=== PATIENT | female | born 1990 | race Caucasian/White ===

== ENCOUNTER 2018-08-27 15:56 | Emergency (ER) | payer MEDICAID, OTHER ==
[2018-08-27 16:05] VITALS: BP 121/73
--- NOTE | 2018-08-27 16:09 | EDPHY ---
H & P Stated Complaint: hit in head with surge protector Time Seen by Provider: 08/27/18 16:09 - Personal History LMP (Females 10-55): Now Current Tetanus/Diphtheria Vaccine: Unsure Current Tetanus Diphtheria and Acellular Pertussis (TDAP): Unsure - Medical/Surgical History Hx Asthma: No Hx Chronic Respiratory Disease: No Hx Diabetes: No Hx Cardiac Disease: No Hx Renal Disease: No Hx Cirrhosis: No Hx Alcoholism: No Hx HIV/AIDS: No Hx Splenectomy or Spleen Trauma: No Other PMH: ORTHOPEDIC ISSUES, DISLOCATED RIB, MIGRAINES - Social History Smoking Status: Never smoked Constitutional: Initial Vital Signs Temperature (C) 37.1 C 08/27/18 16:02 Heart Rate 73 08/27/18 16:02 Respiratory Rate 16 08/27/18 16:02 Blood Pressure 121/73 H 08/27/18 16:02 O2 Sat (%) 98 08/27/18 16:02 O2 Delivery Mode Room Air Allergies/Adverse Reactions: No Known Allergies Allergy (Unverified 08/27/18 16:02) Home Medications: Medication Instructions Recorded NK [No Known Home Meds] 02/11/15 Medical Decision Making ED Course/Re-evaluation: CHIEF COMPLAINT: Struck in head with surge protector HISTORY OF PRESENT ILLNESS: The patient is a 28 y/o female arriving with her friend for a workman's comp injury after she was accidentally struck on the left side of her head with a surge protector. She did not lose consciousness and denies midline neck pain, weakness, paresthesias. She has mild tenderness at the site. She is generally healthy. She went to urgent care and was referred directly to the ED for evaluation. REVIEW OF SYSTEMS: A comprehensive 10 system review of systems is otherwise negative aside from elements mentioned in the history of present illness and medical decision making. PHYSICAL EXAM: HR, BP, O2 Sat, RR. Temp noted General Appearance: Alert, well hydrated, appropriate, and non-toxic appearing. Head: Atraumatic without scalp tenderness or obvious injury Eyes: Pupils equal, round, reactive to light and accommodation, EOMI, no trauma , no injection. Nose: Atraumatic, no rhinorrhea, clear. Throat: Mucus membranes moist. Neck: Supple, nontender, no lymphadenopathy. Respiratory: No retractions, no distress, no wheezes, and no accessory muscle use. Lungs are clear to auscultation bilaterally. Cardiovascular: Regular rate and rhythm, no murmurs, rubs, or gallops. Good capillary refill all extremities. Gastrointestinal: Abdomen is soft, nontender, non-distended, no masses, no rebound, no guarding, no peritoneal signs. Musculoskeletal: Normal active ROM of all extremities, atraumatic. Neurological: Alert, appropriate, and interactive. The patient has non-focal cranial nerves, motor, sensory, and cerebellar exam. Skin: No rashes, good turgor, no nodules on palpation. Past medical history: Migraines Past surgical history: Noncontributory Family history: Noncontributory Social history: Friend at bedside. Lives in [place]. Employed. DIFFERENTIAL DIAGNOSIS: The differential diagnosis for the patient's head injury included but was not limited to concussion, skull fracture, intra- parenchymal contusion, subarachnoid, subdural and epidural hematoma. MEDICAL DECISION MAKING: This is a healthy 28 y/o female who presents for a workman's comp injury after she was accidentally struck in the head with a surge protector. Exam is completely normal. She does not meet any criteria for neuro imaging based on [place] [facility] rules. Recommended discharge home without work restrictions. Standard head injury care and follow up instructions discussed. She is comfortable with this plan. Departure - Departure Disposition: Home, Routine, Self-Care Clinical Impression: Head injury Qualifiers: Encounter type: initial encounter Qualified Code(s): S09.90XA - Unspecified injury of head, initial encounter Condition: Good Instructions: Concussion (ED), Head Injury (ED) Additional Instructions: 1. Tylenol and ibuprofen as directed on the packaging as needed for pain over the next few days. 2. No work restrictions. 3. Follow up with head injury specialist if needed for any persistent problems over the next week. 4. Return to the ED for any worsening of condition. Follow up with your company's HR department as directed by them for workman's comp injury. Referrals: Ofelia Tomas MD [Medical Doctor] - As per Instructions Report Scribed for: Landon Nicole Report Scribed by: Renae Unger Date of Report: 08/27/18 Time of Report: 16:09
== END 2018-08-27 16:22 | disposition home or self-care (01) ==
DX: S09.90XA Unspecified injury of head, initial encounter (principal); W20.8XXA Other cause of strike by thrown, projected or falling object, initial encounter; Y99.0 Civilian activity done for income or pay